=== PATIENT | female | born 1940 | race Caucasian/White ===

== ENCOUNTER 2018-10-28 12:26 | Emergency (ER) | payer OTHER ==
[~2018-10-28] VITALS: Ht 157.5 cm; Wt 62.6 kg
[2018-10-28 12:41] VITALS: Ht 157.5 cm; Wt 62.6 kg
[2018-10-28 14:48] LABS: microscopic required? NO
[2018-10-28 15:12] LABS: UA SPECIFIC GRAVITY <=1.005 (1.005-1.035); urine erythrocyte NEGATIVE (NEGATIVE)
[2018-10-28 16:58] VITALS: BP 139/79
== END 2018-10-28 16:58 | disposition home or self-care (01) ==
LOC: ED 12:26
PROVIDERS: Emergency Medicine
DX: R30.0 Dysuria (principal); M54.9 Dorsalgia, unspecified; Z88.5 Allergy status to narcotic agent

== ENCOUNTER 2018-10-31 09:03 | Emergency (ER) | payer OTHER ==
[~2018-10-31] VITALS: Ht 157.5 cm; Wt 62.6 kg
[2018-10-31 09:13] VITALS: Ht 157.5 cm; Wt 62.6 kg
[2018-10-31 10:09] VITALS: BP 105/62
== END 2018-10-31 10:09 | disposition home or self-care (01) ==
LOC: ED 09:03
DX: N39.0 Urinary tract infection, site not specified (principal)